=== PATIENT | female | born 1980 | race African-American/Black ===

== ENCOUNTER 2018-05-05 14:05 | Emergency (ER) | payer OTHER ==
[~2018-05-05] VITALS: Ht 152.4 cm; Wt 85.8 kg
[~2018-05-05 14:05] MED LIST: GABAPENTIN100 MG PO; HYDROCODON-ACE1 EAC7 PO; MELOXICAM15 MG PO; Motrin PO; NAPROSYN500 MG PO; NORCO 5/3251 TABLET PO; OMEPRAZOLE20 MG PO; PREDNISONE10 M1 PO; PREDNISONE20 MG PO; PROVENTIL HFA6.7 GM IH; ZITHROMAX Z-PA250 MG PO
[2018-05-05 17:35] VITALS: BP 160/96
== END 2018-05-05 17:36 | disposition home or self-care (01) ==
LOC: EME 14:05
DX: M25.562 Pain in left knee (principal); J30.2 Other seasonal allergic rhinitis; Z88.2 Allergy status to sulfonamides
CPT/HCPCS: 73564; 93971; 99281; 99284